=== PATIENT | female | born 1935 | race Caucasian/White ===

== ENCOUNTER → 2017-02-25 | Outpatient (CLI) | payer MEDICARE, OTHER ==
[~2017-02-25] MED LIST: FENO145T25 PO; HYD25 GTB; METF-405 PO; OLME40TA14 PO; ZOLP5TAB6 PO
--- NOTE | 2017-02-25 13:20 | RADRPT ---
PROCEDURE: XR Left Hip and pelvis. CLINICAL INDICATION: Left hip pain. Pelvic pain. Postop. TECHNIQUE: 3 views. Frontal pelvis, frontal left hip, and lateral left hip. COMPARISON: 07/07/2014. FINDINGS: There is no fracture or dislocation. The soft tissues are normal. There is a left hip total arthroplasty which appears satisfactory. There are moderate degenerative changes of the right hip with joint space narrowing and osteophytes. 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 There is no lytic or blastic lesion. The upper pelvis is not included on the image. IMPRESSION: 1. Satisfactory postoperative appearance of the left hip. 2. Moderate degenerative changes of the right hip. 3. Degenerative changes of the lower lumbar spine. 4. No change from 07/07/2014. RPTAT: QQ .Inderjit Mena MD, Date Time Electronically viewed and signed by .Inderjit Mena MD, on 02/25/2017 13:20 .R/
== END | disposition home or self-care (01) ==
LOC: HKI 09:15
PROVIDERS: ATTEND Orthopaedic Surgery
DX: M25.552 Pain in left hip (principal); Z96.642 Presence of left artificial hip joint
CPT/HCPCS: 73502; G0463

== ENCOUNTER → 2018-09-17 | Outpatient (CLI) | END | disposition home or self-care (01) ==